=== PATIENT | male | born 1970 | race Caucasian/White ===

== ENCOUNTER 2019-03-20 10:16 | Inpatient (IN) | payer BC ==
[~2019-03-20] VITALS: Ht 177.8 cm; Wt 89.8 kg
--- NOTE | 2019-03-20 10:25 | NUR ---
[id number] frm home c/o L sided abdominal pain s/p abdominal exercise 2 days ago. Patient a/ox4, breathing even and unlabored, no sob noted. Attached to the monitoring tech. No distress noted.
[2019-03-20] MEDS ORDERED: IV NS 0.9% 1,000 ML BAG IV ONE (10:30)
[2019-03-20] MEDS ORDERED: MORPHINE SULFATE INJ 2 MG/ML DISP.SYRIN SQ ONE (10:30)
[2019-03-20] MEDS ORDERED: FAMOTIDINE/PF INJ 20 MG/2 ML VIAL IV ONE ×2 (10:30→10:54)
[2019-03-20] MEDS ORDERED: ONDANSETRON HCL/PF - ER 4 MG/2 ML VIAL IV ONE (10:30)
[2019-03-20 10:45] LABS: BASOPHILS # (AUTO) 0.1 /CMM (0.0-0.2); BASOPHILS % (AUTO) 0.4 % (0.0-2.0); EOSINOPHILS % (AUTO) 0.7 % (0.0-6.0); HEMATOCRIT 47 % (39-51); HEMOGLOBIN 15.7 g/dL (13.5-17.5); LYMPHOCYTES # (AUTO) 1.7 /CMM (0.8-4.8); LYMPHOCYTES % (AUTO) 9.6 % (20.0-44.0); MEAN CORPUSCULAR HGB CONC 34 g/dl (31.0-36.0); MEAN CORPUSCULAR VOLUME 89 fL (80-96); MONOCYTES % (AUTO) 5.7 % (2.0-12.0); NEUTROPHILS # (AUTO) 14.9 /CMM (1.8-8.9); NEUTROPHILS % (AUTO) 83.6 % (43.0-81.0); PLATELET COUNT (AUTO) 216 /CMM (150-450); RED BLOOD CELL COUNT(AUTO) 5.21 MIL/uL (4.5-6.0); WHITE BLOOD COUNT (AUTO) 17.9 K/uL (4.3-11.0)
[2019-03-20 10:52] LABS: CALCIUM, SERUM 9.4 mg/dL (8.5-10.1); CARBON DIOXIDE 27 mmol/L (21-32); CHLORIDE 106 mmol/L (98-107); GLUCOSE 147 mg/dL (74-106); POTASSIUM 3.5 mmol/L (3.5-5.1); SODIUM SERUM 139 mmol/L (136-145); UREA NITROGEN, BLOOD 12 mg/dL (7-18)
[2019-03-20] MEDS ORDERED: ONDANSETRON HCL/PF 4 MG/2 ML VIAL ONE (10:53)
[2019-03-20] MEDS ORDERED: MORPHINE SULFATE INJ 4 MG/ML DISP.SYRIN ONE (10:53)
[2019-03-20 10:58] LABS: ALANINE AMINOTRANSFERASE 34 U/L (12-78); ALBUMIN 3.4 g/dL (3.4-5.0); ALKALINE PHOSPHATASE 48 U/L (46-116); ASPARTATE AMINOTRANSFERASE 20 U/L (15-37); BILIRUBIN,DIRECT 0.2 mg/dL (0.0-0.2); BILIRUBIN,TOTAL 0.5 mg/dL (0.2-1.0); LIPASE 82 U/L (73-393); TOTAL PROTEIN, SERUM 6.8 g/dL (6.4-8.2)
[2019-03-20 11:17] LABS: APPEARANCE,URINE Clear (CLEAR); BILIRUBIN,URINE Negative (NEGATIVE); BLOOD, URINE Negative Ery/uL (NEGATIVE); COLOR,URINE Yellow (YELLOW); KETONES,URINE Negative (NEGATIVE); LEUKOCYTE ESTERASE ,URINE Negative (NEGATIVE); NITRITE, URINE Negative (NEGATIVE); PH,URINE 6.5 (5.0-8.0); PROTEIN,URINE Negative (NEGATIVE); UGLUCOSE Negative (NEGATIVE); UROBILINOGEN,URINE 0.2 EU/dL (0.2)
[2019-03-20] MEDS ORDERED: IOHEXOL-300 100 ML VIAL IV ONE (11:29)
[2019-03-20] MEDS ORDERED: IV NS 0.9% 250 ML IV ONE (11:30)
--- NOTE | 2019-03-20 11:32 | NUR ---
PATIENT TAKEN TO CT.
--- NOTE | 2019-03-20 12:50 | NUR ---
M/S RN NOTES PATIENT RECEIVED ALERT AND ORIENTED X4, NO RESPIRATORY DISTRESS, PAIN ON THE LOWER ABDOMEN TOLERABLE AT THIS TIME. NO C/O OF NASEA/VOMITING. SKIN ASSESSED, NO SKIN BREAKDOWN, SKIN WARM TO TOUCH. IV ON THE RAC #18G INTACT AND PATENT, FLAGYL IV INFUSING. PATIENT'S BELONGINGS FORM SIGNED. NOTIFIED MD, CARRIED OUT ORDERS. WILL CONTINUE TO MONITOR. Addendum: 03/20/19 at 1833 by ERIC LE RN PATIENT WAS ADMITTED AT 1350 NOT 1250
[2019-03-20] MEDS ORDERED: METRONIDAZOLE 500MG/ NS 100ML 500 MG in PREMIX 1 EA IV SCH (13:00)
[2019-03-20] MEDS ORDERED: MORPHINE SULFATE INJ 2 MG/ML DISP.SYRIN IV ONE ×2 (13:00)
[2019-03-20] MEDS ORDERED: MORPHINE SULFATE INJ 2 MG/ML DISP.SYRIN ONE (13:00)
--- NOTE | 2019-03-20 13:20 | NUR ---
ATTILA SUP ASSIGNED 315-1
--- NOTE | 2019-03-20 13:24 | NUR ---
REPORT GIVEN TO AIDA AIKEN.
[2019-03-20] MEDS ORDERED: LORAZEPAM INJ 2 MG/ML VIAL IV PRN (13:30)
[2019-03-20] MEDS ORDERED: ACETAMINOPHEN 325 MG TABLET PO PRN (13:30)
[2019-03-20] MEDS: IV NS 0.9% 1,000 ML IV PRN (13:30)
[2019-03-20] MEDS ORDERED: ONDANSETRON HCL/PF 4 MG/2 ML VIAL IVP PRN (13:30)
[2019-03-20] MEDS ORDERED: PIPERACILLIN /TAZOBACTAM 3.375 G in IV D5W 50 ML IV ONE (13:30)
--- NOTE | 2019-03-20 13:48 | NUR ---
PATIENT TRANSFERRED TO ROOM 315-1, IN STABLE CONDITION. NO DISTRESS NOTED.
[2019-03-20] MEDS ORDERED: METRONIDAZOLE 500MG/ NS 100ML 500 MG in PREMIX 1 EA IV ONE (14:00)
[2019-03-20 14:15] VITALS: BP 108/78
[2019-03-20 16:02] VITALS: BP 119/66
--- NOTE | 2019-03-20 16:50 | NUR ---
M/S RN NOTES PATIENT WENT TO SMOKE IN THE PATIO, ESCORTED BY JUVENCIO HIGGINS. MD AWARE PATIENT SMOKES MARIJUANA. PER PATIENT IT HELPS HIM WITH ANXIETY AND PAIN.
[2019-03-20] MEDS: MORPHINE SULFATE INJ 2 MG/ML DISP.SYRIN IV PRN (17:44)
[2019-03-20] MEDS ORDERED: PIPERACILLIN /TAZOBACTAM 3.375 G in IV D5W 50 ML IV SCH ×4 (18:00)
--- NOTE | 2019-03-20 18:34 | NUR ---
M/S RN NOTES PATIENT AWAKE, WATCHING TV. PATIENT IN NO RESPIRATORY DISTRESS, PAIN AT A TOLERABLE LEVEL OF 4/10, IV NS INFUSING AT 85ML/HR ON THE RAC, INTACT AND PATENT. SKIN WARM TO TOUCH. BED ON LOWEST LOCKED POSITION, CALL LIGHT WITHIN REACH. WILL ENDORSE TO ONCOMING NURSE.
--- NOTE | 2019-03-20 19:26 | NUR ---
MS RN OPENING NOTES Received patient A/O x4, awake on bed with SO at bedside. On NPO except ice chips as ordered, provided ice. On RA, no SOB/respiratory distress noted at this time. No s/sx of discomfort noted at this time. Kept on bed clean, dry and comfortable. Call light within easy reach. On fall precautions. Will continue to monitor accordingly.
[2019-03-20 20:00] VITALS: BP 113/61
--- NOTE | 2019-03-20 20:32 | NUR ---
MS RN NOTES Seen and examined by Dr. Thakur. 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 Patient is ambulatory without drug safety assistant, with steady gait.
--- NOTE | 2019-03-20 20:42 | NUR ---
MS RN NOTES Patient is back in the room. Oral care done by the patient independently. Resumed IVF as ordered, due meds given as ordered.
[2019-03-20] MEDS: PIPERACILLIN /TAZOBACTAM 3.375 G in IV D5W 100 ML IV SCH (20:43)
[2019-03-20] MEDS: ZOLPIDEM TARTRATE 5 MG TABLET PO PRN (23:14)
[2019-03-21] MEDS: IV NS 0.9% 1,000 ML IV PRN (01:14)
[2019-03-21] MEDS: MORPHINE SULFATE INJ 2 MG/ML DISP.SYRIN IV PRN ×4 (01:21→20:22)
[2019-03-21] MEDS: PIPERACILLIN /TAZOBACTAM 3.375 G in IV D5W 100 ML IV SCH ×3 (04:07→20:25)
--- NOTE | 2019-03-21 05:30 | NUR ---
MS RN NOTES Patient noted with small formed stool. Sample taken for ordered stool exam. corrosion technician notified, stored accordingly.
--- NOTE | 2019-03-21 06:39 | NUR ---
MS RN CLOSING NOTES Patient on bed, asleep, easily awaken. Medicated for pain, noted effective. All due meds given, no ASE noted. Patient noted with small stool and able to pass gas. Kept on bed clean, dry and comfortable. Call light within easy reach. Endorsed to the next shift.
[2019-03-21 06:44] LABS: BASOPHILS % (AUTO) 0.2 % (0.0-2.0); HEMATOCRIT 44 % (39-51); HEMOGLOBIN 15.4 g/dL (13.5-17.5); LYMPHOCYTES # (AUTO) 2.2 /CMM (0.8-4.8); LYMPHOCYTES % (AUTO) 15.8 % (20.0-44.0); MEAN CORPUSCULAR HGB CONC 35 g/dl (31.0-36.0); MEAN CORPUSCULAR VOLUME 89 fL (80-96); MONOCYTES # (AUTO) 0.9 /CMM (0.1-1.30); MONOCYTES % (AUTO) 6.5 % (2.0-12.0); NEUTROPHILS # (AUTO) 10.8 /CMM (1.8-8.9); NEUTROPHILS % (AUTO) 76.5 % (43.0-81.0); PLATELET COUNT (AUTO) 219 /CMM (150-450); RED BLOOD CELL COUNT(AUTO) 4.98 MIL/uL (4.5-6.0); WHITE BLOOD COUNT (AUTO) 14.1 K/uL (4.3-11.0)
--- NOTE | 2019-03-21 07:40 | NUR ---
RN OPENING NOTES Patient received on room air, no sob noted, patient a/o x4 and denies pain at this time. NPO except water at this time, with Left hand #20 NS @ 125 ml per hour. Bed at the lowest setting, call light within reach, side rails up x2.
[2019-03-21 08:00] VITALS: BP 121/67
[2019-03-21 08:04] LABS: CALCIUM, SERUM 8.6 mg/dL (8.5-10.1); CREATININE 1.1 mg/dL (0.6-1.3); MAGNESIUM 1.8 mg/dL (1.8-2.4); PHOSPHORUS 2.2 mg/dL (2.5-4.9); POTASSIUM 3.8 mmol/L (3.5-5.1)
[2019-03-21 09:27] LABS: OCCULT BLOOD STOOL NEGATIVE (NEGATIVE)
[2019-03-21] MEDS ORDERED: Sodium Phosphate 15 MMOL in IV D5W 250 ML IV ONE (10:30)
[2019-03-21 16:00] VITALS: BP 122/70
--- NOTE | 2019-03-21 18:10 | NUR ---
RN closing notes Patient remains on room air, no sob noted, a/o x4 with no pain at this time. Patient states no discomfort with his stomach. Patient able to tolerate clear liquid diet, and per Kavita TOUR DRIVER, we can try regular diet right now since patient had no pain when he last had a bowel movement. Patient remains with L hand #20 and is on 125 ml per hour. Bed at the lowest setting, call light within reach, side rails up x2. Will give report to NOC RN for KETURAH bedside.
--- NOTE | 2019-03-21 19:22 | NUR ---
RECEIVE PT IN BED AWAKE A/O X 3, RESPIRATIONS EVEN AND UNLABORED. NO S/S OF DISTRESS,WILL CONT TO MTR
[2019-03-21 20:00] VITALS: BP 118/66
[2019-03-21] MEDS: IV D5/ 0.9% NACL 1,000 ML IV PRN (20:26)
[2019-03-21] MEDS: ZOLPIDEM TARTRATE 5 MG TABLET PO PRN (22:58)
[2019-03-22] MEDS: MORPHINE SULFATE INJ 2 MG/ML DISP.SYRIN IV PRN (01:55)
[2019-03-22] MEDS: PIPERACILLIN /TAZOBACTAM 3.375 G in IV D5W 100 ML IV SCH (05:03)
--- NOTE | 2019-03-22 06:06 | NUR ---
PT SLEPT WELL THROUGHOUT THE NIGHT. NEEDS ATTENDED AND ANTICIPATED. KEPT CLEAN, DRY AND COMFORTABLE. MONITORED FOR PAIN. MEDICATED PT WITH PRN PAIN MEDS RELIEF. PT HAD 1 SOFT BOWEL MOVEMENT. SAFETY MEASURES AT ALL TIMES. WILL ENDORSE NEXT SHIFT POC.
[2019-03-22] MEDS: IV D5/ 0.9% NACL 1,000 ML IV PRN (06:45)
[2019-03-22 07:05] LABS: BASOPHILS % (AUTO) 0.2 % (0.0-2.0); EOSINOPHILS % (AUTO) 1.8 % (0.0-6.0); HEMATOCRIT 46 % (39-51); HEMOGLOBIN 15.8 g/dL (13.5-17.5); LYMPHOCYTES # (AUTO) 2.2 /CMM (0.8-4.8); LYMPHOCYTES % (AUTO) 19.8 % (20.0-44.0); MEAN CORPUSCULAR HGB CONC 34 g/dl (31.0-36.0); MEAN CORPUSCULAR VOLUME 90 fL (80-96); MONOCYTES # (AUTO) 0.8 /CMM (0.1-1.30); MONOCYTES % (AUTO) 7.2 % (2.0-12.0); PLATELET COUNT (AUTO) 234 /CMM (150-450); RED BLOOD CELL COUNT(AUTO) 5.15 MIL/uL (4.5-6.0); WHITE BLOOD COUNT (AUTO) 11.3 K/uL (4.3-11.0)
--- NOTE | 2019-03-22 07:23 | NUR ---
MS RN OPENING NOTES RECEIVED PATIENT IN BED, ALERT AND AWAKE ORIENTD X4. NO SOB. DENIES ANY C/O PAIN NOR DISCOMFORT AT THIS TIME. SLEPT WELL THROUGHOUT THE NIGHT PER PATIENT. DENIES ANY C/O ABD PAIN/DISCOMFORT. PER PATIENT TARIQ REGULAR DIET DURING MEAL INTAKE WITHOUT PROBLEMS. LEFT HAND # 20 INTACT AND PATENT INFUSING D5 NS @ 100ML/HR TARIQ WELL. AMBULATORY WITH STEADY GAIT. BED IN LOWEST POSITION, LOCKED. CALL LIGHT WITHIN REACH. BED SIDERAILS UP X2.
[2019-03-22 08:00] VITALS: BP 95/74
[2019-03-22 08:47] LABS: CREATININE 1.1 mg/dL (0.6-1.3); PHOSPHORUS 2.2 mg/dL (2.5-4.9); POTASSIUM 3.6 mmol/L (3.5-5.1)
[2019-03-22] MEDS ORDERED: AMOX-430 PO (09:13)
[2019-03-22] MEDS ORDERED: HYDR-4354 PO (09:13)
[2019-03-22] MEDS ORDERED: ONDA4TAB5 PO (09:13)
--- NOTE | 2019-03-22 10:18 | NUR ---
MS RN CLOSING/DISCHARGE NOTES ALERT AND ORIENTED X4. NO SOB. DENIES ANY C/O PAIN NOR DISCOMFORT AT THIS TIME. PER PATIENT TARIQ REGULAR DIET DURING BREAKFAST WITHOUT PROBLEMS. DISCHARGE INSTRUCTIONS AND PACKET GIVEN TO PATIENT AND VERBALIZES UNDERSTANDING. ALL BELONGINGS ACCOUNTED FOR. DISCHARGE TEACHINGS DONE AND DIVERTICULITIS DIET. PER PATIENT HE MAKES HIS OWN MEALS AND DOES NOT NEED THE LIST OF DIET FOR DIVERTICULITIS. AMBULATORY WITH STEADY GAIT. PATIENT LEFT IN STABLE CONDITION VIA PRIVATE CAR ACCOMPANIED BY . V/S B/P: 95/74; HR:65; RR:18; T:97.6 O2 SAT 94% ROOM AIR.
== END 2019-03-22 10:00 | disposition home or self-care (01) | DRG 392 ==
LOC: ER 10:18 → MED 13:34
PROVIDERS: ADMIT Nurse Practitioner Acute Care; ATTEND Nurse Practitioner Acute Care
DX: K57.92 Diverticulitis of intestine, part unspecified, without perforation or abscess without bleeding (principal); Z96.652 Presence of left artificial knee joint; F12.90 Cannabis use, unspecified, uncomplicated; Z98.890 Other specified postprocedural states; D72.829 Elevated white blood cell count, unspecified; M51.37 Other intervertebral disc degeneration, lumbosacral region; Z90.49 Acquired absence of other specified parts of digestive tract
CPT/HCPCS: 36415; 71045-TC; 80048-TC; 80061-TC; 80076-TC; 81000-TC; 82272-TC; 83690-TC; 83735-TC; 84100-TC; 84484-TC; 85025-TC; 87045-TC; 87081-TC; 87177; 87209; 89055; A4216; A9563; G0378; J2270; J2405; J2543; J3490; J7030; J7042; J7050; J7060; Q9967